=== PATIENT | female | born 1995 | race African-American/Black ===

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

== ENCOUNTER 2017-11-08 08:45 | Emergency (ER) | payer BC, OTHER ==
[~2017-11-08] VITALS: Ht 165.1 cm; Wt 70.3 kg
[2017-11-08] MEDS ORDERED: IV NORMAL SALINE 1,000ML 1,000 ML IV SCH (09:09)
[2017-11-08 09:30] VITALS: BP 118/65
[2017-11-08] MEDS ORDERED: ONDANSETRON PF 4 MG/2 ML VIAL. IV ONE (09:30)
[2017-11-08 09:34] LABS: BASO # 0.1 x10^3/uL (0.0-0.2); BASO % 1 % (0-3); EOS # 0.4 x10^3/uL (0.0-0.7); EOS % 3 % (0-3); HEMATOCRIT 40.8 % (36.0-47.0); HEMOGLOBIN 13.9 g/dL (12.0-15.5); LYMPH # 2.9 x10^3/uL (1.0-4.8); LYMPH % 24 % (24-48); MEAN CORPUSCULAR HEMOGLOBIN 30 pg (25-35); MEAN CORPUSCULAR HGB CONC 34 g/dL (31-37); MEAN CORPUSCULAR VOLUME 87 fL (79-100); MONO # 0.7 x10^3/uL (0.0-1.1); MONO % 6 % (0-9); NEUT # 8.2 x10^3uL (1.8-7.7); NEUT % 67 % (31-73); PLATELET COUNT 282 x10^3/uL (140-400); RED BLOOD COUNT 4.69 x10^6/uL (3.50-5.40); RED CELL DISTRIBUTION WIDTH 14.9 % (11.5-14.5); WHITE BLOOD COUNT 12.3 x10^3/uL (4.0-11.0)
[2017-11-08 09:39] LABS: CALCIUM 9.5 mg/dL (8.5-10.1); CREATININE 0.8 mg/dL (0.6-1.0); GFR 110.7; POTASSIUM 3.4 mmol/L (3.5-5.1)
[2017-11-08 09:59] LABS: BARBITURATES NEG (NEG); BENZODIAZEPINES NEG (NEG); CANNABINOIDS NEG (NEG); COCAINE NEG (NEG); METHADONE NEG (NEG); OPIATES NEG (NEG); PHENCYCLIDINE NEG (NEG)
[2017-11-08 10:00] LABS: AMPHETAMINE/METHAMPHETAMINE NEG (NEG)
[2017-11-08 10:07] LABS: BILIRUBIN,URINE NEG (NEG); CLARITY,URINE HAZY; COLOR,URINE STRAW; GLUCOSE,URINE NEG (NEG)
[2017-11-08 10:08] LABS: BACTERIA,URINE FEW /HPF (0-FEW); NITRITE,URINE NEG (NEG); RBC,URINE 0 /HPF (0-2); SQUAMOUS EPITHELIAL CELL,UR MANY /LPF; UROBILINOGEN,URINE 0.2 mg/dL (0.2 mg/dL)
[2017-11-08] MEDS ORDERED: ONDA4TAB10 SL (10:30)
[2017-11-08] MEDS ORDERED: CEPH-264 PO (10:30)
--- NOTE | 2017-11-08 12:23 | PHYS DOC ---
Past History Past Medical History: Anxiety, Depression, Migraines, Other Past Surgical History: Smoking: Non-smoker Alcohol Use: None Drug Use: None Adult General Chief Complaint Chief Complaint: ANXIETY/PANIC ATTACK HPI HPI 22-year-old female patient at 3 months of gestation with a strong history of anxiety states she didn't take her anxiety medication since she is and had episodes of nausea and vomiting and became anxious after vomiting today. Patient complaining of shortness of breath and palpitation and feeling very anxious. She denies suicidal and homicidal ideation or hallucination, vaginal bleeding and discharge, abdominal pain, fever and chills. Review of Systems Review of Systems Constitutional: Denies fever or chills [] Eyes: Denies change in visual acuity, redness, or eye pain [] HENT: Denies nasal congestion or sore throat [] Respiratory: Reports shortness of breath [] Cardiovascular: No additional information not addressed in HPI [] GI: Denies abdominal pain, bloody stools or diarrhea. reports nausea and vomiting [] : Denies dysuria or hematuria [] Musculoskeletal: Denies back pain or joint pain [] Integument: Denies rash or skin lesions [] Neurologic: Denies headache, focal weakness or sensory changes [] Endocrine: Denies polyuria or polydipsia [] All other systems were reviewed and found to be within normal limits, except as documented in this note. Current Medications Current Medications Current Medications Medications (Trade) Dose Ordered Sig/Brii Start Time Stop Time Status Last Admin Dose Admin Ondansetron HCl (Zofran) 4 mg 1X ONCE 11/08/17 09:30 11/08/17 09:31 DC 11/08/17 09:59 4 MG Sodium Chloride 1,000 ml @ 1,000 mls/hr Q1H 11/08/17 09:09 11/08/17 10:08 DC 11/08/17 09:59 1,000 MLS/HR Allergies Allergies Allergies Coded Allergies Type Severity Reaction Last Updated Verified No Known Drug Allergies 11/11/16 No Physical Exam Physical Exam Constitutional: Well developed, well nourished, moderate distress, very anxious , non-toxic appearance. [] HENT: Normocephalic, atraumatic, oropharynx moist, no oral exudates, nose normal. [] Eyes: PERRLA, EOMI, conjunctiva normal, no discharge. [] Neck: Normal range of motion, no tenderness, supple, no stridor. [] Cardiovascular:Heart rate regular rhythm, no murmur [] Lungs & Thorax: Bilateral breath sounds clear to auscultation [] Abdomen: Bowel sounds normal, soft, no tenderness, no masses, no pulsatile masses. [] Skin: Warm, dry, no erythema, no rash. [] Back: No tenderness, no CVA tenderness. [] Extremities: No tenderness, no cyanosis, no clubbing, ROM intact, no edema. [] Neurologic: Alert and oriented X 3, normal motor function, normal sensory function, no focal deficits noted. [] Psychologic: Affect anxious and agitated, judgement normal, mood normal. [] Current Patient Data Vital Signs Vital Signs Date Time Temp Pulse Resp B/P (MAP) Pulse Ox O2 Delivery O2 Flow Rate FiO2 11/08/17 09:30 20 Room Air 11/08/17 09:30 98.4 91 100 Lab Results Laboratory Tests Test 11/08/17 09:15 11/08/17 09:20 11/08/17 09:34 Glucose (Fingerstick) 101 mg/dL (70-99) H White Blood Count 12.3 x10^3/uL (4.0-11.0) H Red Blood Count 4.69 x10^6/uL (3.50-5.40) Hemoglobin 13.9 g/dL (12.0-15.5) Hematocrit 40.8 % (36.0-47.0) Mean Corpuscular Volume 87 fL (79-100) Mean Corpuscular Hemoglobin 30 pg (25-35) Mean Corpuscular Hemoglobin Concent 34 g/dL (31-37) Red Cell Distribution Width 14.9 % (11.5-14.5) H Platelet Count 282 x10^3/uL (140-400) Neutrophils (%) (Auto) 67 % (31-73) Lymphocytes (%) (Auto) 24 % (24-48) Monocytes (%) (Auto) 6 % (0-9) Eosinophils (%) (Auto) 3 % (0-3) Basophils (%) (Auto) 1 % (0-3) Neutrophils # (Auto) 8.2 x10^3uL (1.8-7.7) H Lymphocytes # (Auto) 2.9 x10^3/uL (1.0-4.8) Monocytes # (Auto) 0.7 x10^3/uL (0.0-1.1) Eosinophils # (Auto) 0.4 x10^3/uL (0.0-0.7) Basophils # (Auto) 0.1 x10^3/uL (0.0-0.2) Sodium Level 138 mmol/L (136-145) Potassium Level 3.4 mmol/L (3.5-5.1) L Chloride Level 102 mmol/L (98-107) Carbon Dioxide Level 22 mmol/L (21-32) Anion Gap 14 (6-14) Blood Urea Nitrogen 5 mg/dL (7-20) L Creatinine 0.8 mg/dL (0.6-1.0) Estimated GFR (Cockcroft-Gault) 110.7 Glucose Level 97 mg/dL (70-99) Calcium Level 9.5 mg/dL (8.5-10.1) Urine Collection Type Unknown Urine Color Straw Urine Clarity Hazy Urine pH 8.0 Urine Specific [place] 1.010 Urine Protein Neg (NEG-TRACE) Urine Glucose (UA) Neg mg/dL (NEG) Urine Ketones (Stick) Neg mg/dL (NEG) Urine Blood Neg (NEG) Urine Nitrite Neg (NEG) Urine Bilirubin Neg (NEG) Urine Urobilinogen Dipstick 0.2 mg/dL (0.2 mg/dL) Urine Leukocyte Esterase Mod (NEG) Urine RBC 0 /HPF (0-2) Urine WBC 1-4 /HPF (0-4) Urine Squamous Epithelial Cells Many /LPF Urine Bacteria Few /HPF (0-FEW) Urine Opiates Screen Neg (NEG) Urine Methadone Screen Neg (NEG) Urine Barbiturates Neg (NEG) Urine Phencyclidine Screen Neg (NEG) Urine Amphetamine/Methamphetamine Neg (NEG) Urine Benzodiazepines Screen Neg (NEG) Urine Cocaine Screen Neg (NEG) Urine Cannabinoids Screen Neg (NEG) Urine Ethyl Alcohol Neg (NEG) EKG EKG [] Radiology/Procedures Radiology/Procedures [] Course & Med Decision Making Course & Med Decision Making Pertinent Labs reviewed. (See chart for details) Evaluation of patient in ER showed 22-year-old patient with history of anxiety complaining of episodes of panic attack after vomiting. Patient was very anxious and felt better with IV fluid and Zofran. Patient denies suicidal or homicidal ideation. Patient instructed to follow up with her psychiatric regarding anxiety. Patient had mild UTI and prescription for Keflex was given. Swathi Disclaimer Telloon Disclaimer This electronic medical record was generated, in whole or in part, using a voice recognition dictation system. Departure Departure: Impression: Primary Impression: Panic attack Additional Impressions: Anxiety Currently Nausea and vomiting UTI (urinary tract infection) Disposition: HOME, SELF-CARE Condition: IMPROVED Referrals: HOPE WARD DO (PCP) Patient Instructions: Anxiety and Panic Attacks, Hyperemesis Gravidarum, Urinary Tract Infection Additional Instructions: Drink plenty of liquids Follow-up with your primary care physician in 3-5 days Return to ER if not getting better Scripts Ondansetron (ZOFRAN ODT) 4 Mg Tab.rapdis 1 TAB SL Q8HRS, #15 TAB Prov: ERICA GUILLEN MD 11/08/17 Cephalexin (KEFLEX) 500 Mg Capsule 1 CAP PO TID, #21 CAP Prov: ERICA GUILLEN MD 11/08/17 Problem Qualifiers ERICA GUILLEN MD Nov 08, 2017 12:23
== END 2017-11-08 10:40 | disposition home or self-care (01) ==
LOC: ER 08:45
DX: O99.341 Other mental disorders complicating pregnancy, first trimester (principal); F41.0 Panic disorder [episodic paroxysmal anxiety]; O23.41 Unspecified infection of urinary tract in pregnancy, first trimester; F41.9 Anxiety disorder, unspecified; F32.9 Major depressive disorder, single episode, unspecified; G43.909 Migraine, unspecified, not intractable, without status migrainosus; Z3A.00 Weeks of gestation of pregnancy not specified; Z98.890 Other specified postprocedural states
CPT/HCPCS: 36415; 80048; 80307; 81001; 82947; 85025; 87086; 96361; 96374; 99284; J2405; G0479; J7030

== ENCOUNTER 2019-01-16 20:12 | Emergency (ER) | payer BC, OTHER ==
[~2019-01-16] VITALS: Ht 167.6 cm; Wt 73.9 kg
[~2019-01-16 20:12] MED LIST changes: +CEPH-264 PO; +ONDA4TAB10 SL
--- NOTE | 2019-01-16 20:27 | ED.ADGEN ---
Past History Past Medical History: Anxiety, Migraines, UTI, Other Past Medical History Borderline Personality Past Surgical History: Smoking: Non-smoker Alcohol Use: None Drug Use: None Adult General Chief Complaint Chief Complaint ".. I started having some back pain yesterday.. but it got really severe on this Lt side and flank.. so bad it made me vomit... " HPI HPI Patient is a 23 year old female who presents with severe left flank pain that radiates to her groin. Some subjective hx of fever and chills. Patient has no history of previous kidney stones but there is a family history kidney stones. No history of trauma. No history immunosuppression. No history of travel or specific ill contacts. Patient denies any vaginal discharge. Pain at times feels stabbing like and is rated 10 out of 10 during these episodes. Review of Systems Review of Systems Constitutional: Hx. fever or chills [] Eyes: Denies change in visual acuity, redness, or eye pain [] HENT: Denies nasal congestion or sore throat [] Respiratory: Denies cough or shortness of breath [] Cardiovascular: No additional information not addressed in HPI [] GI: Lt. flank abdominal pain,. denies bloody stools or diarrhea []complaints of nausea and vomiting. : complaints of dysuria or hematuria [] Musculoskeletal: Complains of left flank pain Integument: Denies rash or skin lesions [] Neurologic: Denies headache, focal weakness or sensory changes [] Endocrine: Denies polyuria or polydipsia [] All other systems were reviewed and found to be within normal limits, except as documented in this note. Family History Family History Kidney stones Current Medications Current Medications Current Medications Medications (Trade) Dose Ordered Sig/Brii Start Time Stop Time Status Last Admin Dose Admin Ceftriaxone Sodium 1 gm/ Sodium Chloride 50 ml @ 100 mls/hr 1X ONCE 01/16/19 22:45 01/16/19 23:14 DC 01/16/19 23:17 100 MLS/HR Ceftriaxone Sodium (Rocephin) 1 gm STK-MED ONCE 01/16/19 23:01 01/16/19 23:02 DC Ketorolac Tromethamine (Toradol 30mg Vial) 30 mg 1X ONCE 01/16/19 21:30 01/16/19 21:35 DC 01/16/19 21:40 30 MG Lactated Ringer's 1,000 ml @ 1,000 mls/hr 1X ONCE 01/16/19 22:45 01/16/19 23:44 DC 01/16/19 23:52 1,000 MLS/HR Morphine Sulfate (Morphine 10mg Syringe) 10 mg 1X ONCE 01/16/19 21:30 01/16/19 21:35 DC Ondansetron HCl (Zofran) 8 mg 1X ONCE 01/16/19 21:30 01/16/19 21:35 DC Phenazopyridine HCl (Pyridium) 200 mg 1X ONCE 01/16/19 22:45 01/16/19 22:46 DC 01/16/19 23:17 200 MG Sodium Chloride 50 ml @ As Directed STK-MED ONCE 01/16/19 23:00 01/16/19 23:02 DC Trimethoprim/ Sulfamethoxazole (Bactrim Ds) 1 tab 1X ONCE 01/16/19 22:45 01/16/19 22:46 DC 01/16/19 23:17 1 TAB Allergies Allergies Allergies Coded Allergies Type Severity Reaction Last Updated Verified No Known Drug Allergies 11/11/16 No Physical Exam Physical Exam Constitutional: Well developed, well nourished,in acute distress, non-toxic appearance. [] HENT: Normocephalic, atraumatic, bilateral external ears normal, oropharynx dry, no oral exudates, nose normal. [] Eyes: PERRLA, EOMI, conjunctiva normal, no discharge. [] Neck: Normal range of motion, no tenderness, supple, no stridor. [] Cardiovascular:Heart rate regular rhythm, no murmur [] Lungs & Thorax: Bilateral breath sounds equal at apex auscultation [] Abdomen: Bowel sounds decreased, soft, left flank tenderness, no masses, no pulsatile masses. [] Skin: Warm, dry, no erythema, no rash. [] Back: No tenderness, Lt. CVA tenderness. [] Extremities: No tenderness, no cyanosis, no clubbing, ROM intact, no edema. [] No psoas sign Neurologic: Alert and oriented X 3, normal motor function, normal sensory function, no focal deficits noted. [] Psychologic: Affect anxious, judgement normal, mood normal. [] Current Patient Data Vital Signs Vital Signs Date Time Temp Pulse Resp B/P (MAP) Pulse Ox O2 Delivery O2 Flow Rate FiO2 01/16/19 20:37 97.9 91 16 99 Room Air Lab Results Laboratory Tests Test 01/16/19 20:45 01/16/19 21:04 01/16/19 21:33 Urine Collection Type Void Urine Color Yellow Urine Clarity Hazy Urine pH 8.5 Urine Specific [place] 1.015 Urine Protein 30 mg/dl (NEG-TRACE) Urine Glucose (UA) Neg mg/dL (NEG) Urine Ketones (Stick) Neg mg/dL (NEG) Urine Blood Small (NEG) Urine Nitrite Neg (NEG) Urine Bilirubin Neg (NEG) Urine Urobilinogen Dipstick 0.2 mg/dL (0.2 mg/dL) Urine Leukocyte Esterase Small (NEG) Urine RBC 6-10 /HPF (0-2) Urine WBC 20-40 /HPF (0-4) Urine Squamous Epithelial Cells Few /LPF Urine Bacteria Few /HPF (0-FEW) Urine Test Negative (NEG) Urine Opiates Screen Neg (NEG) Urine Methadone Screen Neg (NEG) Urine Barbiturates Neg (NEG) Urine Phencyclidine Screen Neg (NEG) Urine Amphetamine/Methamphetamine Neg (NEG) Urine Benzodiazepines Screen Neg (NEG) Urine Cocaine Screen Neg (NEG) Urine Cannabinoids Screen Neg (NEG) Urine Ethyl Alcohol Neg (NEG) POC Urine HCG, Qualitative hcg negative (Negative) White Blood Count 15.1 x10^3/uL (4.0-11.0) H Red Blood Count 4.66 x10^6/uL (3.50-5.40) Hemoglobin 11.0 g/dL (12.0-15.5) L Hematocrit 34.9 % (36.0-47.0) L Mean Corpuscular Volume 75 fL (79-100) L Mean Corpuscular Hemoglobin 24 pg (25-35) L Mean Corpuscular Hemoglobin Concent 32 g/dL (31-37) Red Cell Distribution Width 16.4 % (11.5-14.5) H Platelet Count 270 x10^3/uL (140-400) Neutrophils (%) (Auto) 75 % (31-73) H Lymphocytes (%) (Auto) 15 % (24-48) L Monocytes (%) (Auto) 7 % (0-9) Eosinophils (%) (Auto) 3 % (0-3) Basophils (%) (Auto) 0 % (0-3) Neutrophils # (Auto) 11.3 x10^3uL (1.8-7.7) H Lymphocytes # (Auto) 2.3 x10^3/uL (1.0-4.8) Monocytes # (Auto) 1.0 x10^3/uL (0.0-1.1) Eosinophils # (Auto) 0.5 x10^3/uL (0.0-0.7) Basophils # (Auto) 0.1 x10^3/uL (0.0-0.2) Segmented Neutrophils % 65 % (35-66) Lymphocytes % 28 % (24-48) Monocytes % 5 % (0-10) Eosinophils % 2 % (0-5) Platelet Estimate Adequate (ADEQUATE) Erythrocyte Sedimentation Rate 10 (0-25) Prothrombin Time 10.8 SEC (9.4-11.4) Prothrombin Time INR 1.0 (0.9-1.1) Activated Partial Thromboplast Time 25 SEC (23-33) Sodium Level 139 mmol/L (136-145) Potassium Level 3.2 mmol/L (3.5-5.1) L Chloride Level 101 mmol/L (98-107) Carbon Dioxide Level 26 mmol/L (21-32) Anion Gap 12 (6-14) Blood Urea Nitrogen 7 mg/dL (7-20) Creatinine 1.0 mg/dL (0.6-1.0) Estimated GFR (Cockcroft-Gault) 84.7 Glucose Level 92 mg/dL (70-99) Calcium Level 9.4 mg/dL (8.5-10.1) Total Bilirubin 0.8 mg/dL (0.2-1.0) Direct Bilirubin 0.1 mg/dL (0.0-0.2) Aspartate Amino Transferase (AST) 23 U/L (15-37) Alanine Aminotransferase (ALT) 20 U/L (14-59) Alkaline Phosphatase 129 U/L (46-116) H Total Protein 7.3 g/dL (6.4-8.2) Albumin 3.9 g/dL (3.4-5.0) Lipase 129 U/L (73-393) EKG EKG [] Radiology/Procedures Radiology/Procedures [address] [address] IMAGING REPORT Signed PATIENT: ELLE KILGORE ACCOUNT: [id number] : 1995 LOCATION: ER AGE: 23 SEX: F EXAM STATUS: REG ER ORD. PHYSICIAN: NAYAN BOWSER MD REASON: left flank pain PROCEDURE: ACUTE ABDOMEN SERIES ACUTE ABDOMEN SERIES History: Left flank pain Comparison: None. Findings: Single view of the chest, single upright view the abdomen, single supine AP view abdomen are submitted. There is no infiltrate, pleural fluid, pneumothorax, free air. Bowel is not significantly dilated. There is variable retained stool in the colon. No unusual calcifications are identified of the abdomen or pelvis. Impression: 1. There is a nonobstructive bowel gas pattern. There is some retained stool in segments of colon. Electronically signed by: Suha Christian MD (01/16/2019 10:14 PM) [facility] DICTATED AND SIGNED BY: SUHA CHRISTIAN MD DATE: 01/16/192213 CC: NAYAN BOWSER MD; GAB CORDOBA ~ [][address] [address] IMAGING REPORT Signed PATIENT: ELLE KILGORE ACCOUNT: [id number] : 1995 LOCATION: ER AGE: 23 SEX: F EXAM STATUS: REG ER ORD. PHYSICIAN: NAYAN BOWSER MD REASON: left flank pain PROCEDURE: CT ABDOMEN PELVIS WO CONTRAST PQRS Compliance statement: One or more of the following individualized dose reduction techniques were utilized for this examination: 1. Automated exposure control. 2. Adjustment of the mA and/or kV according to patient size. 3. Use of iterative reconstruction technique. Indication:Left flank pain. TECHNIQUE: CT abdomen and pelvis without IV contrast with multiplanar reformats. COMPARISON: None FINDINGS: Limited evaluation of solid abdominal and pelvic organs due to lack of IV contrast. Heart is normal in size. No pericardial or pleural effusion. Clear lung bases. Noncontrast appearance of the liver, spleen, gallbladder, pancreas, adrenals within normal limits. No nephrolithiasis or hydronephrosis. Trace amount of free pelvic fluid. No enlarged retroperitoneal or pelvic adenopathy. No bowel obstruction. Appendix not visualized. No pneumoperitoneum. Anteverted uterus. Urinary bladder demonstrates no radiopaque stone. No suspicious bony lesion. IMPRESSION: Limited evaluation of solid abdominal and pelvic organs due to lack of IV contrast. 1. No bowel obstruction. 2. No nephrolithiasis or hydronephrosis. 3. Trace amount of free pelvic fluid likely physiologic. Electronically signed by: Huang Cox DO (01/16/2019 9:44 PM) [facility] DICTATED AND SIGNED BY: HUANG COX DO DATE: 01/16/192143 CC: NAYAN BOWSER MD; GAB CORDOBA ~ Course & Med Decision Making Course & Med Decision Making Pertinent Labs and Imaging studies reviewed. (See chart for details) Pt. declines admission at this time. Pt. elects attempt of UTI and I will nephritis in outpatient setting. Patient take Bactrim DS twice day. Patient follow-up primary care. Patient push fruit juices. Take Tylenol or ibuprofen pain. Return if any concerns. Must follow-up primary care. [] Final Impression Final Impression 1. Abdomen pain- Lt flank 2. Nausea and vomiting[] 3. Constipation 4. UTI 5. Pyelonephritis 6. Leukocytosis 15.1 7. Anemia Hgb 11 8. Hypokalemia 3.2 9. Elevation alk phos 129 Dragon Disclaimer Dragon Disclaimer This electronic medical record was generated, in whole or in part, using a voice recognition dictation system. Dragon Disclaimer This chart was dictated in whole or in part using Voice Recognition software in a busy, high-work load, and often noisy Emergency Department environment. It may contain unintended and wholly unrecognized errors or omissions. NYAAN BOWSER MD Jan 16, 2019 20:27
[2019-01-16] MEDS ORDERED: ONDANSETRON PF 4 MG/2 ML VIAL. IV ONE (21:30)
[2019-01-16] MEDS ORDERED: KETOROLAC 30 MG/ML VIAL. IV ONE (21:30)
[2019-01-16] MEDS ORDERED: MORPHINE SULFATE 10 MG/ML SYRINGE. SQ ONE (21:30)
--- NOTE | 2019-01-16 21:46 | RAD ---
PQRS Compliance statement: One or more of the following individualized dose reduction techniques were utilized for this examination: 1. Automated exposure control. 2. Adjustment of the mA and/or kV according to patient size. 3. Use of iterative reconstruction technique. Indication:Left flank pain. TECHNIQUE: CT abdomen and pelvis without IV contrast with multiplanar reformats. COMPARISON: None FINDINGS: Limited evaluation of solid abdominal and pelvic organs due to lack of IV contrast. Heart is normal in size. No pericardial or pleural effusion. Clear lung bases. Noncontrast appearance of the liver, spleen, gallbladder, pancreas, adrenals within normal limits. No nephrolithiasis or hydronephrosis. Trace amount of free pelvic fluid. No enlarged retroperitoneal or pelvic adenopathy. No bowel obstruction. Appendix not visualized. No pneumoperitoneum. Anteverted uterus. Urinary bladder demonstrates no radiopaque stone. No suspicious bony lesion. IMPRESSION: Limited evaluation of solid abdominal and pelvic organs due to lack of IV contrast. 1. No bowel obstruction. 2. No nephrolithiasis or hydronephrosis. 3. Trace amount of free pelvic fluid likely physiologic. Electronically signed by: Huang Cox DO (01/16/2019 9:44 PM) [facility]
[2019-01-16 21:48] LABS: BILIRUBIN,URINE NEG (NEG); CLARITY,URINE HAZY; COLOR,URINE YELLOW; GLUCOSE,URINE NEG (NEG)
[2019-01-16 21:50] LABS: BACTERIA,URINE FEW /HPF (0-FEW); NITRITE,URINE NEG (NEG); SQUAMOUS EPITHELIAL CELL,UR FEW /LPF; U PREG PATIENT NEGATIVE (NEG); UROBILINOGEN,URINE 0.2 mg/dL (0.2 mg/dL); WBC,URINE 20-40 /HPF (0-4)
[2019-01-16 21:59] LABS: BASO # 0.1 x10^3/uL (0.0-0.2); BASO % 0 % (0-3); EOS # 0.5 x10^3/uL (0.0-0.7); EOS % 3 % (0-3); HEMATOCRIT 34.9 % (36.0-47.0); LYMPH # 2.3 x10^3/uL (1.0-4.8); LYMPH % 15 % (24-48); MEAN CORPUSCULAR HEMOGLOBIN 24 pg (25-35); MEAN CORPUSCULAR HGB CONC 32 g/dL (31-37); MEAN CORPUSCULAR VOLUME 75 fL (79-100); MONO % 7 % (0-9); NEUT # 11.3 x10^3uL (1.8-7.7); NEUT % 75 % (31-73); PLATELET COUNT 270 x10^3/uL (140-400); RED BLOOD COUNT 4.66 x10^6/uL (3.50-5.40); RED CELL DISTRIBUTION WIDTH 16.4 % (11.5-14.5); WHITE BLOOD COUNT 15.1 x10^3/uL (4.0-11.0)
[2019-01-16 22:04] LABS: BARBITURATES NEG (NEG); BENZODIAZEPINES NEG (NEG); CANNABINOIDS NEG (NEG); COCAINE NEG (NEG); METHADONE NEG (NEG); OPIATES NEG (NEG); PHENCYCLIDINE NEG (NEG)
[2019-01-16 22:06] LABS: AMPHETAMINE/METHAMPHETAMINE NEG (NEG)
[2019-01-16 22:07] LABS: ALBUMIN 3.9 g/dL (3.4-5.0); CALCIUM 9.4 mg/dL (8.5-10.1); DIRECT BILIRUBIN 0.1 mg/dL (0.0-0.2); GFR 84.7; POTASSIUM 3.2 mmol/L (3.5-5.1); TOTAL BILIRUBIN 0.8 mg/dL (0.2-1.0); TOTAL PROTEIN 7.3 g/dL (6.4-8.2)
--- NOTE | 2019-01-16 22:16 | RAD ---
ACUTE ABDOMEN SERIES History: Left flank pain Comparison: None. Findings: Single view of the chest, single upright view the abdomen, single supine AP view abdomen are submitted. There is no infiltrate, pleural fluid, pneumothorax, free air. Bowel is not significantly dilated. There is variable retained stool in the colon. No unusual calcifications are identified of the abdomen or pelvis. Impression: 1. There is a nonobstructive bowel gas pattern. There is some retained stool in segments of colon. Electronically signed by: Artemio Reilly MD (01/16/2019 10:14 PM) [facility]
[2019-01-16 22:43] LABS: % EOS 2 % (0-5); % LYMPHS 28 % (24-48); % MONOS 5 % (0-10); % SEGS 65 % (35-66)
[2019-01-16 22:44] LABS: PLT ESTIMATE ADEQUATE (ADEQUATE)
[2019-01-16] MEDS ORDERED: SMZ/TMP 800/160MG TABLET. PO ONE (22:45)
[2019-01-16] MEDS ORDERED: IV RINGERS SOLUTION,LACTATED 1,000 ML IV ONE (22:45)
[2019-01-16] MEDS ORDERED: PHENAZOPYRIDINE 200 MG TABLET. PO ONE (22:45)
[2019-01-16] MEDS ORDERED: IV NORMAL SALINE 50ML 50 ML ONE (23:00)
[2019-01-16] MEDS ORDERED: cefTRIAXone SODIUM 1 GM VIAL ONE (23:01)
[2019-01-16] MEDS ORDERED: ONDA8TAB9 PO (23:20)
[2019-01-16] MEDS ORDERED: SULF1TAB24 PO (23:20)
[2019-01-16] MEDS ORDERED: HYDR-1179 PO (23:20)
[2019-01-16 23:49] LABS: SEDIMENTATION RATE 10 (0-25)
[2019-01-17 00:20] VITALS: BP 118/60
== END 2019-01-17 00:23 | disposition home or self-care (01) ==
LOC: ER 20:12
DX: N39.0 Urinary tract infection, site not specified (principal); K59.00 Constipation, unspecified; D72.829 Elevated white blood cell count, unspecified; N12 Tubulo-interstitial nephritis, not specified as acute or chronic; D64.9 Anemia, unspecified; E87.6 Hypokalemia; R74.8 Abnormal levels of other serum enzymes; G43.909 Migraine, unspecified, not intractable, without status migrainosus; F60.3 Borderline personality disorder; Z87.440 Personal history of urinary (tract) infections; Z98.890 Other specified postprocedural states
CPT/HCPCS: 36415; 74022; 74176; 80048; 80076; 80307; 81001; 81025; 83690; 85007; 85025; 85610; 85651; 85730; 87086; 96365; 96375; 99285; J0696; J1885; J7120

== ENCOUNTER → 2020-07-26 | Outpatient (CLI) | payer SELFPAY ==
[~2020-07-26] MED LIST changes: +HYDR-1179 PO; +ONDA8TAB9 PO; +SULF1TAB24 PO
[2020-07-26 12:11] LABS: BASO # 0.1 x10^3/uL (0.0-0.2); BASO % 1 % (0-3); EOS # 0.6 x10^3/uL (0.0-0.7); EOS % 7 % (0-3); HEMATOCRIT 39.2 % (36.0-47.0); HEMOGLOBIN 12.9 g/dL (12.0-15.5); LYMPH # 2.2 x10^3/uL (1.0-4.8); LYMPH % 28 % (24-48); MEAN CORPUSCULAR HEMOGLOBIN 28 pg (25-35); MEAN CORPUSCULAR HGB CONC 33 g/dL (31-37); MEAN CORPUSCULAR VOLUME 85 fL (79-100); MONO # 0.6 x10^3/uL (0.0-1.1); MONO % 7 % (0-9); NEUT # 4.3 x10^3uL (1.8-7.7); NEUT % 56 % (31-73); PLATELET COUNT 315 x10^3/uL (140-400); RED BLOOD COUNT 4.61 x10^6/uL (3.50-5.40); RED CELL DISTRIBUTION WIDTH 13.7 % (11.5-14.5); WHITE BLOOD COUNT 7.7 x10^3/uL (4.0-11.0)
[2020-07-26 12:22] LABS: ALBUMIN 4.2 g/dL (3.4-5.0); ALBUMIN/GLOBULIN RATIO 1.2 (1.0-1.7); ALK PHOS 84 U/L (46-116); ALT (SGPT) 22 U/L (14-59); ANION GAP 9 (6-14); AST (SGOT) 21 U/L (15-37); BLOOD UREA NITROGEN 8 mg/dL (7-20); BUN/CREATININE RATIO 10 (6-20); CALCIUM 9.8 mg/dL (8.5-10.1); CARBON DIOXIDE 28 mmol/L (21-32); CHLORIDE 104 mmol/L (98-107); CREATININE 0.8 mg/dL (0.6-1.0); GFR 107.6; GLUCOSE 97 mg/dL (70-99); POTASSIUM 4.1 mmol/L (3.5-5.1); SODIUM 141 mmol/L (136-145); TOTAL BILIRUBIN 1.5 mg/dL (0.2-1.0); TOTAL PROTEIN 7.8 g/dL (6.4-8.2)
[2020-07-26 12:36] LABS: C REACTIVE PROTEIN < 0.5 mg/L (0-3.3)
== END ==
LOC: LAB 09:39
PROVIDERS: ATTEND Family Medicine
DX: K92.2 Gastrointestinal hemorrhage, unspecified (principal); K21.9 Gastro-esophageal reflux disease without esophagitis
CPT/HCPCS: 80053; 85025; 86140; 87493

== ENCOUNTER 2021-07-02 17:32 | Emergency (ER) | payer SELFPAY ==
[~2021-07-02] VITALS: Ht 167.6 cm; Wt 68.4 kg
--- NOTE | 2021-07-02 17:49 | PHYS DOC ---
Past History Past Medical History: Anxiety, Migraines, UTI, Other Past Surgical History: No Surgical History Smoking: Non-smoker Alcohol Use: None Drug Use: None General Adult EDM: Chief Complaint: FLANK PAIN HPI: HPI: ".. I got some flank pain.. maybe another UTI.." Patient is a 26 year old female who presents with above hx and complaints of flank pain. Patient states overall symptoms are similar to prior UTIs. No history of recent travel. No history of vaginal discharge. No history of trauma. No history immunosuppression. Patient normally healthy. Patient does have a usual allergy to Pepcid. Patient normally follows with Dr. Stewart. Patient also has hospital record under the name Farhana Helton. Patient has had past medical history of anxiety, migraines, urinary tract infections, constipation,. He has had previous abdomen surgeries a . Patient is also follow-up with Dr. Hahn and Dr. Rios and Dr. Teresa in the past. Review of Systems: Review of Systems: Constitutional: Denies fever or chills Eyes: Denies change in visual acuity HENT: Denies nasal congestion or sore throat Respiratory: Denies cough or shortness of breath Cardiovascular: Denies chest pain or edema GI: Complains of flank pain - low bilateral, , abdominal pain, nausea, vomiting, bloody stools or diarrhea : Complains of dysuria Musculoskeletal: Denies back pain or joint pain Integument: Denies rash Neurologic: Denies headache, focal weakness or sensory changes Endocrine: Denies polyuria or polydipsia Lymphatic: Denies swollen glands Psychiatric: Denies depression or anxiety Family History: Family History: Noncontributory to presentation Current Medications: Current Meds: See nursing for home meds Allergies: Allergies: Allergies Coded Allergies Type Severity Reaction Last Updated Verified No Known Drug Allergies 11/11/16 No Physical Exam: PE: Constitutional: Well developed, well nourished, no acute distress, non-toxic appearance. [] HENT: Normocephalic, atraumatic, bilateral external ears normal, oropharynx moist, no oral exudates, nose normal. [] Eyes: PERRLA, EOMI, conjunctiva normal, no discharge. [] Neck: Normal range of motion, no tenderness, supple, no stridor. [] Cardiovascular:Heart rate regular rhythm, no murmur [] Lungs & Thorax: Bilateral breath sounds equal apex on auscultation [] Abdomen: Bowel sounds decreased, soft, no rebound tenderness, no masses, no pulsatile masses. [] Mild super pubic discomfort. Declines pelvic exam at this time. Old surgery scar. Skin: Warm, dry, no erythema, no rash. [] Back: No tenderness, no CVA tenderness. [] Extremities: No tenderness, no cyanosis, no clubbing, ROM intact, no edema. [] Neurologic: Alert and oriented X 3, normal motor function, normal sensory function, no focal deficits noted. [] Psychologic: Affect anxious, judgement normal, mood normal. [] EKG: EKG: [] Radiology/Procedures: Radiology/Procedures: [address] [address] IMAGING REPORT Signed PATIENT: FARHANA KILGORE ACCOUNT: [id number] : 1995 LOCATION: ER AGE: 26 SEX: F EXAM STATUS: REG ER ORD. PHYSICIAN: NAYAN BOWSER MD REASON: abdomen pain PROCEDURE: CT ABDOMEN PELVIS WO CONTRAST INDICATION: Reason: abdomen pain / Spl. Instructions: / History: COMPARISON: December 2018 TECHNIQUE: Axial CT images were obtained through the abdomen and pelvis without intravenous contrast. One or more of the following individualized dose reduction techniques were uti lized for this examination: 1. Automated exposure control; 2. Adjustment of the mA and/or kV according to patient size; 3. Use of iterative reconstruction technique. FINDINGS: Vascular: No abdominal aortic aneurysm. Hepatobiliary: Liver is prominent in size. Gallbladder partially contracted. There may be some sludge within. Pancreas: Limited assessment without contrast. Spleen: Spleen unremarkable. Renal/Bladder: No hydronephrosis. Gastrointestinal: No dilated loops of bowel suggest obstruction. The appendix is partially seen secondary to multiple unopacified loops of bowel within the area. Prominent stool is seen within the colon including within the cecal region which is distended up to about 7-8 cm. No definite inflammatory changes surrounding the visualized portion of the partially visualized appendix. Degenerative changes of the spine which are more than typically seen for the patient's age including osteophyte formation of vertebral body endplates as well as disc protrusions. This appears most severe at L5-S1 and L4-5 with disc protrusion also seen at L3-4. This does result in central canal and neural foraminal stenosis most severe at L5-S1. Sclerotic lesion of the sacrum most commonly from bone island. IMPRESSION: * Prominent stool within the colon which appears somewhat distended. Could be from constipation. * Degenerative changes of the spine with disc protrusions and osteophyte formation which is more than typically seen for the patient's age. Electronically signed by: Aliyah Haney MD (07/02/2021 8:09 PM) [id number] DICTATED AND SIGNED BY: ALIYAH HANEY MD DATE: 07/02/211954 CC: NAYAN BOWSER MD; GAB HAHN ~MTH0 0 [][place] [address] IMAGING REPORT Signed PATIENT: FARHANA KILGORE ACCOUNT: [id number] : 1995 LOCATION: ER AGE: 26 SEX: F EXAM STATUS: REG ER ORD. PHYSICIAN: NAYAN BOWSER MD REASON: pain PROCEDURE: ACUTE ABDOMEN SERIES XR ABDOMEN COMP ACUTE History: Reason: pain / Spl. Instructions: / History: Technique: Upright supine views the abdomen. Comparison: January 16, 2019 Findings: No dislocation or pleural effusion. No pneumothorax. No pneumoperitoneum. Minimal small bowel gas. No air-fluid levels. Air and stool throughout the colo n. Moderate colonic stool burden. Impression: 1. Nonobstructed bowel gas pattern. 2. Moderate colonic stool burden. Electronically signed by: Stiven Bates DO (07/02/2021 8:21 PM) [facility] DICTATED AND SIGNED BY: STIVEN BATES DO DATE: 07/02/212019 CC: NAYAN BOWSER MD; G[facility] HAHN ~MTH0 0 Heart Score: C/O Chest Pain: N/A Risk Factors: Risk Factors: DM, Current or recent (<one month) smoker, HTN, HLP, family history of CAD, obesity. Risk Scores: Score 0 - 3: 2.5% MACE over next 6 weeks - Discharge Home Score 4 - 6: 20.3% MACE over next 6 weeks - Admit for Clinical Observation Score 7 - 10: 72.7% MACE over next 6 weeks - Early Invasive Strategies Course & Med Decision Making: Course & Med Decision Making Pertinent Labs and Imaging studies reviewed. (See chart for details) Patient push vitamin C drinks. Patient but fluids. Patient follow-up culture.s Patient follow-up primary care. Patient take Keflex 500 mg 3 times a day. Patient follow-up if no improvement. After completing the Keflex to do 3 days of Diflucan 100. Return if any concerns. Impression: 1. Dysuria 2. Urinary tract infection 3. Mild leukocytosis 16-with 86 segs 4. Mild anemia hemoglobin 11.9 5. Constipation [] Dragon Disclaimer: Dragon Disclaimer: This electronic medical record was generated, in whole or in part, using a voice recognition dictation system. Departure Departure: Referrals: GAB HAHN (PCP) Scripts Fluconazole (DIFLUCAN) 100 Mg Tablet 100 MG PO DAILY for post antibiotic tx for 3 Days, #3 TAB Prov: NAYAN BOWSER MD 07/02/21 Cephalexin (KEFLEX) 500 Mg Capsule 500 MG PO TID for uti for 10 Days, #30 CAP Prov: NAYAN BOWSER MD 07/02/21 Dragon Disclaimer This chart was dictated in whole or in part using Voice Recognition software in a busy, high-work load, and often noisy Emergency Department environment. It may contain unintended and wholly unrecognized errors or omissions. NAYAN BOWSER MD Jul 02, 2021 17:49
[2021-07-02 18:45] LABS: BARBITURATES NEG (NEG); BENZODIAZEPINES NEG (NEG); CANNABINOIDS NEG (NEG); COCAINE NEG (NEG); METHADONE NEG (NEG); OPIATES NEG (NEG); PHENCYCLIDINE NEG (NEG)
[2021-07-02] MEDS ORDERED: FAMOTIDINE 20 MG/2 ML VIAL IVP ONE (18:45)
[2021-07-02] MEDS ORDERED: ONDANSETRON PF 4 MG/2 ML VIAL. IVP ONE (18:45)
[2021-07-02] MEDS ORDERED: IV RINGERS SOLUTION,LACTATED 1,000 ML IV SCH (18:45)
[2021-07-02] MEDS ORDERED: KETOROLAC 30 MG/ML VIAL. IVP ONE ×2 (18:45)
[2021-07-02 18:52] LABS: AMPHETAMINE/METHAMPHETAMINE NEG (NEG)
[2021-07-02 19:02] LABS: BACTERIA,URINE MOD /HPF (0-FEW); CLARITY,URINE CLOUDY; COLOR,URINE YELLOW; GLUCOSE,URINE NEG (NEG); NITRITE,URINE NEG (NEG); SQUAMOUS EPITHELIAL CELL,UR FEW /LPF; UROBILINOGEN,URINE 0.2 mg/dL (0.2 mg/dL); WBC,URINE >40 /HPF (0-4)
[2021-07-02 19:33] LABS: BASO # 0.1 x10^3/uL (0.0-0.2); BASO % 0 % (0-3); EOS # 0.1 x10^3/uL (0.0-0.7); EOS % 1 % (0-3); HEMATOCRIT 35.3 % (36.0-47.0); HEMOGLOBIN 11.9 g/dL (12.0-15.5); LYMPH % 12 % (24-48); MEAN CORPUSCULAR HEMOGLOBIN 28 pg (25-35); MEAN CORPUSCULAR HGB CONC 34 g/dL (31-37); MEAN CORPUSCULAR VOLUME 85 fL (79-100); MONO # 0.9 x10^3/uL (0.0-1.1); MONO % 6 % (0-9); NEUT # 12.9 x10^3uL (1.8-7.7); NEUT % 81 % (31-73); PLATELET COUNT 277 x10^3/uL (140-400); RED BLOOD COUNT 4.18 x10^6/uL (3.50-5.40); RED CELL DISTRIBUTION WIDTH 12.7 % (11.5-14.5)
[2021-07-02 19:39] LABS: CALCIUM 9.1 mg/dL (8.5-10.1); CREATININE 0.8 mg/dL (0.6-1.0); GFR 106.6; POTASSIUM 3.6 mmol/L (3.5-5.1)
[2021-07-02 19:45] LABS: ALBUMIN 3.8 g/dL (3.4-5.0); DIRECT BILIRUBIN 0.2 mg/dL (0.0-0.2); TOTAL BILIRUBIN 0.8 mg/dL (0.2-1.0); TOTAL PROTEIN 7.4 g/dL (6.4-8.2)
[2021-07-02 20:00] LABS: % LYMPHS 8 % (24-48); % MONOS 6 % (0-10); % SEGS 86 % (35-66)
[2021-07-02 20:01] LABS: PLT ESTIMATE ADEQUATE (ADEQUATE)
--- NOTE | 2021-07-02 20:11 | RAD ---
INDICATION: Reason: abdomen pain / Spl. Instructions: / History: COMPARISON: December 2018 TECHNIQUE: Axial CT images were obtained through the abdomen and pelvis without intravenous contrast. One or more of the following individualized dose reduction techniques were utilized for this examinat ion: 1. Automated exposure control; 2. Adjustment of the mA and/or kV according to patient size; 3 . Use of iterative reconstruction technique. FINDINGS: Vascular: No abdominal aortic aneurysm. Hepatobiliary: Liver is prominent in size. Gallbladder partially contracted. There may be some sludge within. Pancreas: Limited assessment without contrast. Spleen: Spleen unremarkable. Renal/Bladder: No hydronephrosis. Gastrointestinal: No dilated loops of bowel suggest obstruction. The appendix is partially seen secon tanner to multiple unopacified loops of bowel within the area. Prominent stool is seen within the colon including within the cecal region which is distended up to about 7-8 cm. No definite inflammatory ch anges surrounding the visualized portion of the partially visualized appendix. Degenerative changes of the spine which are more than typically seen for the patient's age including osteophyte formation of vertebral body endplates as well as disc protrusions. This appears most sever e at L5-S1 and L4-5 with disc protrusion also seen at L3-4. This does result in central canal and senthil ral foraminal stenosis most severe at L5-S1. Sclerotic lesion of the sacrum most commonly from bone island. IMPRESSION: * Prominent stool within the colon which appears somewhat distended. Could be from constipation. * Degenerative changes of the spine with disc protrusions and osteophyte formation which is more natacha n typically seen for the patient's age. Electronically signed by: Zachary Haney MD (07/02/2021 8:09 PM) [id number]
--- NOTE | 2021-07-02 20:24 | RAD ---
XR ABDOMEN COMP ACUTE History: Reason: pain / Spl. Instructions: / History: Technique: Upright supine views the abdomen. Comparison: January 16, 2019 Findings: No dislocation or pleural effusion. No pneumothorax. No pneumoperitoneum. Minimal small bowel gas. No air-fluid levels. Air and stool throughout the colon. Moderate colonic stool burden. Impression: 1. Nonobstructed bowel gas pattern. 2. Moderate colonic stool burden. Electronically signed by: Stiven Haro DO (07/02/2021 8:21 PM) [facility]
[2021-07-02] MEDS ORDERED: CEPH500C PO (20:40)
[2021-07-02] MEDS ORDERED: FLUC100T7 PO (20:40)
[2021-07-02] MEDS ORDERED: IV NORMAL SALINE 50ML 50 ML ONE ×2 (20:42→20:46)
[2021-07-02] MEDS ORDERED: cefTRIAXone SODIUM 1 GM VIAL ONE (20:42)
[2021-07-02 21:00] VITALS: BP 123/46
== END 2021-07-02 21:05 | disposition home or self-care (01) ==
LOC: ER 17:32
DX: N39.0 Urinary tract infection, site not specified (principal); D72.829 Elevated white blood cell count, unspecified; D64.9 Anemia, unspecified; K59.00 Constipation, unspecified; G43.909 Migraine, unspecified, not intractable, without status migrainosus; Z87.440 Personal history of urinary (tract) infections
CPT/HCPCS: 36415; 74022; 74176; 80048; 80076; 80307; 81001; 81025; 82550; 83690; 85007; 85025; 87077; 87086; 87186; 96361; 96374; 96375; 99285; J0696; J1885; J2405; J7120